=== PATIENT | female | born 1935 | race Caucasian/White ===

== ENCOUNTER 2024-02-02 09:04 | Day surgery (SDC) | payer MEDICARE ==
[2024-02-02] MEDS ORDERED: Decadron 4 MG INJ IV ONE (09:05)
[2024-02-02] MEDS ORDERED: Sodium Chloride 0.9(Preservative Free) 10 ML IJ ONE (09:05)
[2024-02-02] MEDS ORDERED: DIPRIVAN 200 MG/20 ML IV ONE (11:06)
--- NOTE | 2024-02-02 11:52 | XRAY ---
Indication: Left L2-L3 and L4-L5 transforaminal JUAN DANIEL. Intraoperative fluoroscopy provided for 36 seconds. 5 digital spot image submitted for interpretation demonstrates posterior needle tips projecting over the expected left L2 and L4 nerve roots. Small amount of contrast injected for needle tip placement. Correlate with intraoperative findings/report.
[2024-02-02] MEDS ORDERED: Lactated Ringers 1,000 ML IV ONE (12:50)
--- NOTE | 2024-02-02 13:35 | XRAY ---
36 seconds of fluoroscopy was used in surgery for a left L2-L3, L4-L5 transforaminal JUAN DANIEL.
== END 2024-02-02 11:45 | disposition home or self-care (01) ==
LOC: SDC-PAIN 09:04
PROVIDERS: ATTEND Psychiatry & Neurology Pain Medicine
DX: M54.16 Radiculopathy, lumbar region (principal); R73.03 Prediabetes
CPT/HCPCS: 64483; 64484; 72100; 77003; 82947; J1100; J2704; Q9966

== ENCOUNTER 2024-04-20 09:21 | Day surgery (SDC) | payer MEDICARE ==
[2024-04-20] MEDS ORDERED: Sodium Chloride 0.9(Preservative Free) 10 ML IJ ONE (09:22)
[2024-04-20] MEDS ORDERED: LIDOCAINE HCL 1% AMPUL 5 ML IJ ONE (09:22)
[2024-04-20] MEDS ORDERED: Depo-Medrol 40 MG/ML IM ONE (09:22)
[2024-04-20] MEDS ORDERED: DIPRIVAN 200 MG/20 ML IV ONE (10:50)
--- NOTE | 2024-04-20 13:01 | XRAY ---
Indication: Lumbar JUAN DANIEL. Intraoperative fluoroscopy provided for 10 seconds. 3 digital spot image submitted for interpretation demonstrates posterior needle tip projecting posterior to lumbosacral junction. Small amount of contrast injected for needle placement. Correlate with intraoperative findings/report.
--- NOTE | 2024-04-20 13:07 | XRAY ---
10 seconds of fluoroscopy was used in surgery for a lumbar JUAN DANIEL.
== END 2024-04-20 11:20 | disposition home or self-care (01) ==
LOC: SDC-PAIN 09:21
PROVIDERS: ATTEND Psychiatry & Neurology Pain Medicine
DX: M54.16 Radiculopathy, lumbar region (principal); R73.03 Prediabetes
CPT/HCPCS: 62323; 72100; 77003; 82947; J2704; Q9966